=== PATIENT | male | born 1970 | race Caucasian/White ===

== ENCOUNTER 2018-12-27 20:33 | Emergency (ER) | payer OTHER ==
[~2018-12-27] VITALS: Ht 182.9 cm; Wt 90.7 kg
[~2018-12-27 20:33] MED LIST: IBUPROFEN600 MG PO
[2018-12-27] MEDS ORDERED: CYCLOBENZAPRINE10 MG PO (21:50)
[2018-12-27] MEDS ORDERED: NAPROXEN500 MG PO (21:50)
== END 2018-12-27 21:57 | disposition home or self-care (01) ==
LOC: ED 20:33
DX: M54.5 Low back pain (principal); F17.200 Nicotine dependence, unspecified, uncomplicated; V49.9XXA Car occupant (driver) (passenger) injured in unspecified traffic accident, initial encounter
CPT/HCPCS: 99283